=== PATIENT | male | born 1970 | race African-American/Black ===

== ENCOUNTER 2018-09-01 16:37 | Inpatient (IN) | payer OTHER ==
--- NOTE | 2018-09-01 22:54 | HP ---
Screened but not Admitted - Documentation of Visit Screened but not Admitted: No Left Prior to Completion of Assessment: Yes Additional Information/Explanation: CLIENT ABORTED ADMISSION. UNABLE TO LOCATE PATIENT ON MULTIPLE ATTEMPTS
--- NOTE | 2018-09-02 01:40 | HP ---
CIWA Score Nausea/Vomitin-Mild Nausea/No Vomiting Muscle Tremors: None Anxiety: 0-No Anxiety, at Ease Agitation: 3 Paroxysmal Sweats: 3 Orientation: 0-Oriented Tacttile Disturbances: 0-None Auditory Disturbances: 0-None Visual Disturbances: 1-Very Mild Sensitivity Headache: 3-Moderate CIWA-Ar Total Score: 11 - Admission Criteria [facility]ASAS Guidelines: Admission for Medically Managed Detox: Requires at least one of the followin. CIWA greater than 12 2. Seizures within the past 24 hours 3. Delirium tremens within the past 24 hours 4. Hallucinations within the past 24 hours 5. Acute intervention needed for co occurring medical disorder 6. Acute intervention needed for co occurring psychiatric disorder 7. Severe withdrawal that cannot be handled at a lower level of care (continued vomiting, continued diarrhea, abnormal vital signs) requiring intravenous medication and/or fluids 8. Patient presents the following: Acute intervention needed for co-occurring med or psych disorder Admission Criteria Met: Admission criteria met Admission ROS [facility] - [facility] Chief Complaint: WITHDRAWAL SX'S Allergies/Adverse Reactions: Allergies Allergy/AdvReac Type Severity Reaction Status Date / Time No Known Allergies Allergy Verified 09/02/18 03:14 History of Present Illness: 48 Y.O. MALE WITH POLYSUBSTANCE ABUSE HERE FOR ALCOHOL DETOX. CLIENT IS SELF REFERRED. PRESENTS WITH C/O WITHDRAWAL SX'S. CIWA 12. HE IS ALSO ON MMTP 80 MG AT START. REPORTS LDM 09/01/2018. REPORTS LONGEST CLEAN TIME 5 YEARS. DENIES HX/ O SEIZURES, SI/HI/AVH,. HOMELESS, HRA, DENIES LEGALS Exam Limitations: No Limitations - Ebola screening Have you traveled outside of the country in the last 21 days: No (N) Have you had contact with anyone from an Ebola affected area: No Do you have a fever: No - Review of Systems Constitutional: Chills, Loss of Appetite, Night Sweats, Changes in sleep EENT: reports: No Symptoms Reported Respiratory: reports: No Symptoms reported Cardiac: reports: No Symptoms Reported GI: reports: Diarrhea, Nausea, Poor Fluid Intake, Abdominal cramping : reports: No Symptoms Reported Musculoskeletal: reports: No Symptoms Reported Integumentary: reports: Other (ABRASION/SKIN BREAKS TO CORNER OF LIPS) Neuro: reports: Headache Endocrine: reports: No Symptoms Reported Hematology: reports: No Symptoms Reported Psychiatric: reports: Orientated x3, Agitated (IRRITABLE), Depressed (FEELS DEPRESSED. DENIES SI/HI) Other Systems: Reviewed and Negative Patient History - Patient Medical History Hx Anemia: No Hx Asthma: No Hx Chronic Obstructive Pulmonary Disease (COPD): No Hx Cancer: No Hx Cardiac Disorders: No Hx Congestive Heart Failure: No Hx Hypertension: Yes Hx Hypercholesterolemia: No Hx Pacemaker: No HX Cerebrovascular Accident: No Hx Seizures: No Hx Dementia: No Hx Diabetes: No Hx Gastrointestinal Disorders: No Hx Liver Disease: No Hx Genitourinary Disorders: No Hx Sexually Transmitted Disorders: No Hx Renal Disease (ESRD): No Hx Thyroid Disease: No Hx Human Immunodeficiency Virus (HIV): No Hx Hepatitis C: No Hx Depression: Yes Hx Suicide Attempt: No Hx Bipolar Disorder: No Hx Schizophrenia: No - Patient Surgical History Past Surgical History: Yes Hx Neurologic Surgery: No Hx Cataract Extraction: No Hx Cardiac Surgery: No Hx Lung Surgery: No Hx Breast Surgery: No Hx Breast Biopsy: No Hx Abdominal Surgery: No Hx Appendectomy: No Hx Cholecystectomy: No Hx Genitourinary Surgery: No Hx Orthopedic Surgery: Yes (1985 RIGHT ORBITAL FX) Anesthesia Reaction: No - PPD History Previous Implant?: Yes Documented Results: Negative w/proof Implanted On Prior [facility] Admission?: No Date: 04/10/16 PPD to be Administered?: Yes - Smoking Cessation Smoking history: Current every day smoker Have you smoked in the past 12 months: Yes Aproximately how many cigarettes per day: 10 Cigars Per Day: 0 Hx Chewing Tobacco Use: No Initiated information on smoking cessation: Yes 'Breaking Loose' booklet given: 09/02/18 - Substance & Tx. History Hx Alcohol Use: Yes Hx Substance Use: Yes Substance Use Type: Alcohol, Cocaine, Prescribed (MMTP 50 MG DAILY) Hx Substance Use Treatment: Yes ([facility]) - Substances abused Alcohol Other (specify): VODKA Substance route: Oral Frequency: Daily Amount used: 2 PINTS Age of first use: 15 Date of last use: 08/31/18 Marijuana/Hashish Substance route: Smoking Frequency: Daily Amount used: $15 Age of first use: 11 Date of last use: 08/30/18 Cocaine Substance route: Smoking Frequency: Daily Amount used: $100 Age of first use: 15 Date of last use: 09/01/18 Family Disease History - Family Disease History Family Disease History: Other: Father (NEVER MET) Admission Physical Exam [facility] - Physical General Appearance: Yes: Appropriately Dressed, Irritable HEENTM: Yes: EOMI, Normal ENT Inspection, Normocephalic, Normal Voice, BILLY, Pharynx Normal Respiratory: Yes: Chest Non-Tender, Lungs Clear, Normal Breath Sounds, No Respiratory Distress, No Accessory Muscle Use Neck: Yes: No masses,lesions,Nodules, Supple, Trachea in good position Breast: Yes: Breast Exam Deferred Cardiology: Yes: Regular Rhythm, S1, S2, Tachycardia Abdominal: Yes: Normal Bowel Sounds, Soft, Increased Bowel Sounds Genitourinary: Yes: Within Normal Limits Back: Yes: Normal Inspection Musculoskeletal: Yes: full range of Motion, Gait Steady Extremities: Yes: Normal Capillary Refill, Normal Range of Motion, Non-Tender Neurological: Yes: Fully Oriented, Alert, Motor Strength 5/5, Depressed Affect Integumentary: Yes: Dry, Warm Lymphatic: Yes: Within Normal Limits - Diagnostic (1) Alcohol dependence with uncomplicated withdrawal Status: Acute (2) Cannabis dependence, uncomplicated Status: Chronic (3) Cocaine dependence, uncomplicated Status: Chronic (4) History of hypertension Status: Chronic Comment: DIETARY CONTROL (5) Nicotine dependence Status: Chronic Qualifiers: Nicotine product type: cigarettes Substance use status: uncomplicated Qualified Code(s): F17.210 - Nicotine dependence, cigarettes, uncomplicated (6) Substance induced mood disorder Status: Chronic Cleared for Admission [facility] - Detox or Rehab [facility] Level of Care: Medically Managed Detox Regimen/Protocol: Librium Claeared for Rehab Admission: No Breathalyzer - Breathalyzer Breathalyzer: 0.007 Urine Drug Screen - Test Device Lot number: [id number] Expiration date: 04/17/20 - Control Is test valid?: Yes - Results Drug screen NEGATIVE: No Urine drug screen results: THC-Marijuana, AMIRAH-Cocaine, MTD-Methadone Inpatient Rehab Admission - Rehab Decision to Admit Inpatient rehab admission?: No
[2018-09-02] MEDS ORDERED: BISMUTH SUBSALICYLATE 524 MG/30 ML UD PO PRN (01:49)
[2018-09-02] MEDS ORDERED: hydrOXYzine PAMOATE 25 MG CAPSULE (FP) PO PRN (01:49)
[2018-09-02] MEDS ORDERED: MELATONIN 5 MG TABLETS PO PRN (01:49)
[2018-09-02] MEDS ORDERED: MAGNESIUM HYDROX 2400MG/30ML ORAL SUSPENSION 30 ML CUP PO PRN (01:49)
[2018-09-02] MEDS ORDERED: IBUPROFEN 400 MG TABLET (FP) PO PRN (01:49)
[2018-09-02] MEDS ORDERED: DICYCLOMINE HCL 10 MG CAPSULE PO PRN (01:49)
[2018-09-02] MEDS ORDERED: chlordiazePOXIDE HCL 10 MG CAPSULE PO PRN (01:49)
[2018-09-02] MEDS ORDERED: ACETAMINOPHEN 325 MG TABLET (FP) PO PRN ×2 (01:49)
[2018-09-02] MEDS ORDERED: MAGNESIUM CITRATE 300 ML BOTTLE PO PRN (01:49)
[2018-09-02] MEDS ORDERED: MENTHOL/PHENOL 1 EACH UD MM PRN (01:49)
[2018-09-02] MEDS ORDERED: P-EPHED 60MG/TRIPROLIDI 2.5MG TABLET PO PRN (01:49)
[2018-09-02] MEDS ORDERED: NICOTINE POLACRILEX 2 MG GUM BUC PRN (01:49)
[2018-09-02] MEDS ORDERED: guaiFENesin 200 MG/10 ML 10 ML UNIT-DOSE CUPS PO PRN (01:49)
[2018-09-02] MEDS ORDERED: MAG HYDROX/AL HYDROX/SIMETH 30 ML UNIT-DOSE CUP PO PRN (01:49)
[2018-09-02] MEDS ORDERED: METHOCARBAMOL 500 MG TABLET PO PRN (01:49)
[2018-09-02] MEDS ORDERED: ONDANSETRON *ODT* 4 MG TABLET SL PRN (01:49)
[2018-09-02] MEDS: chlordiazePOXIDE HCL 25 MG CAPSULE PO SCH ×3 (05:12→22:19)
[2018-09-02] MEDS: PRENATAL VITAMINS W/ FOLIC ACID TABLET (FP) PO SCH (10:23)
[2018-09-02] MEDS: NICOTINE 21 MG/24 HOURS TOPICAL PATCH TD SCH (10:23)
[2018-09-02] MEDS: amLODIPine BESYLATE 5 MG TABLET (FP) PO SCH (10:23)
[2018-09-02] MEDS ORDERED: METHADONE HCL 40 MG DISPERSABLE TABLET PO ONE (10:47)
--- NOTE | 2018-09-02 11:19 | PN ---
S CIWA - CIWA Score Nausea/Vomitin-Mild Nausea/No Vomiting Muscle Tremors: 3 Anxiety: 3 Agitation: 3 Paroxysmal Sweats: 1-Minimal Palms Moist Orientation: 2-Disoriented Date<2 days Tacttile Disturbances: 0-None Auditory Disturbances: 0-None Visual Disturbances: 0-None Headache: 0-None Present CIWA-Ar Total Score: 13 [facility] Progress Note (SOAP) Subjective: methadone 80 mg verified anxious resting on bed Objective: 09/02/18 11:18 Vital Signs Temperature 97.0 F L 09/02/18 09:05 Pulse Rate 56 L 09/02/18 09:05 Respiratory Rate 18 09/02/18 09:05 Blood Pressure 131/78 09/02/18 09:05 O2 Sat by Pulse Oximetry (%) 09/02/18 11:18 lab pending Assessment: 09/02/18 11:18 withdrawal sx Plan: continue detox
[2018-09-02 12:53] LABS: ALBUMIN 3.2 g/dl (3.4-5.0); ALK PHOS 84 U/L (45-117); ANION GAP 5 MMOL/L (8-16); BILIRUBIN,TOTAL 0.4 mg/dL (0.2-1); BLOOD UREA NITROGEN 15 mg/dL (7-18); CALCIUM 8.9 mg/dL (8.5-10.1); CHLORIDE 103 mmol/L (98-107); CO2 31 mmol/L (21-32); CREATININE 0.7 mg/dL (0.55-1.3); GLUCOSE,RANDOM 78 mg/dL (74-106); POTASSIUM 3.7 mmol/L (3.5-5.1); SGOT/AST 40 U/L (15-37); SGPT/ALT 43 U/L (13-61); SODIUM 139 mmol/L (136-145); TOT PROT 6.5 g/dl (6.4-8.2)
[2018-09-02 13:28] LABS: HEMATOCRIT 38.4 % (35.4-49); MCHC 33.8 g/dl (32.0-35.9); MEAN CELL VOLUME 94.7 fl (80-96); MEAN PLT VOLUME 7.8 fl (7.5-11.1); PLATELET COUNT 273 K/MM3 (134-434); RBC 4.05 M/mm3 (4.00-5.60); RDW 14.7 % (11.9-15.9); WHITE BLOOD COUNT 7.1 K/mm3 (4.0-10.0)
--- NOTE | 2018-09-02 13:36 | CONSULT ---
[facility] Psychiatric Consult - Data Date of interview: 09/02/18 Admission source: [facility] Identifying data: Readmission to [facility] for this 48 y/o AA male self- referred for detoxification (cocaine, heroin, cannabis). Examined at [address] [place] [address]. Patient is , a father of one, homeless, unemployed and supported on food stamps. Substance Abuse History: Confirmed by patient in this session. Details in current [facility] report : Smoking history: Current every day smoker. Have you smoked in the past 12 months: Yes. Aproximately how many cigarettes per day: 10. Cigars Per Day: 0. Hx Chewing Tobacco Use: No. Initiated information on smoking cessation: Yes. 'Breaking Loose' booklet given: 09/02/18. - Substance & Tx. History. Hx Alcohol Use: Yes. Hx Substance Use: Yes. Substance Use Type : Alcohol, Cocaine, Prescribed (MMTP 50 MG DAILY). Hx Substance Use Treatment: Yes ([facility]). - Substances abused. Alcohol. Other (specify): VODKA. Substance route: Oral. Frequency: Daily. Amount used: 2 PINTS. Age of first use: 15. Date of last use: 08/31/18. Marijuana/Hashish. Substance route: Smoking. Frequency: Daily. Amount used: $15. Age of first use: 11. Date of last use: 08/30/18. Cocaine. Substance route: Smoking. Frequency: Daily. Amount used: $100. Age of first use: 15. Date of last use: 09/01/18 Medical History: Hypertension. Psychiatric History: No reported history of psychiatric hospitalizations. Patient states that he was diagnosed, in the past, with MDD and prescribed escitalopram. Dropped out of [facility] care in 2016 (got off lexapro). Mr Pike is currently on methadone maintenance (80 mg/day) at the [facility]. Denies history of suicide attempts. Physical/Sexual Abuse/Trauma History: Patient denies. Additional Comment: Urine drug screen results: THC-Marijuana, AMIRAH-Cocaine, MTD- Methadone. Noted. Mental Status Exam - Mental Status Exam Alert and Oriented to: Time, Place, Person Cognitive Function: Good Patient Appearance: Well Groomed Mood: Hopeful, Euthymic Affect: Appropriate, Normal Range Patient Behavior: Fatigued, Appropriate, Cooperative Speech Pattern: Clear, Appropriate Voice Loudness: Normal Thought Process: Intact, Goal Oriented Thought Disorder: Not Present Hallucinations: Denies Suicidal Ideation: Denies Homicidal Ideation: Denies Insight/Judgement: Poor Sleep: Well Appetite: Good Muscle strength/Tone: Normal Gait/Station: Normal Psychiatric Findings - Problem List ([place] 1, 2,3) (1) Alcohol dependence with uncomplicated withdrawal Current Visit: Yes Status: Acute (2) Opioid dependence on agonist therapy Current Visit: Yes Status: Chronic (3) Cannabis dependence, uncomplicated Current Visit: Yes Status: Chronic (4) Cocaine dependence, uncomplicated Current Visit: Yes Status: Chronic (5) Nicotine dependence Current Visit: Yes Status: Chronic Qualifiers: Nicotine product type: cigarettes Substance use status: uncomplicated Qualified Code(s): F17.210 - Nicotine dependence, cigarettes, uncomplicated - Initial Treatment Plan Initial Treatment Plan: Psychoeducation. Sleep hygiene. Support. Detoxification. Rehabilitation recommended. Observation.
[2018-09-02] MEDS ORDERED: THIAMINE HCL 100 MG TABLET (FP) PO SCH (22:00)
[2018-09-03] MEDS: chlordiazePOXIDE 5 MG CAPSULE PO SCH ×2 (05:12→13:52)
[2018-09-03] MEDS ORDERED: METHADONE HCL 40 MG DISPERSABLE TABLET PO SCH (06:00)
[2018-09-03] MEDS ORDERED: BACITRACIN 0.9 GM PACKET TP SCH (10:00)
[2018-09-03] MEDS: amLODIPine BESYLATE 5 MG TABLET (FP) PO SCH (10:15)
[2018-09-03] MEDS: PRENATAL VITAMINS W/ FOLIC ACID TABLET (FP) PO SCH (10:15)
[2018-09-03] MEDS: NICOTINE 21 MG/24 HOURS TOPICAL PATCH TD SCH (10:16)
[2018-09-03 10:50] LABS: URINE APPEARANCE CLEAR; URINE BILIRUBIN NEGATIVE (NEGATIVE); URINE COLOR YELLOW; URINE GLUCOSE (UA) NEGATIVE (NEGATIVE); URINE KETONE NEGATIVE (NEGATIVE); URINE LEUK ESTERASE NEGATIVE (NEGATIVE); URINE NITRITE NEGATIVE (NEGATIVE); URINE PROTEIN NEGATIVE (NEGATIVE); URINE UROBILINOGEN 0.2 mg/dL (0.2-1.0)
[2018-09-03 13:42] VITALS: BP 144/81; PULSE 52; TEMP 96.8
--- NOTE | 2018-09-03 14:16 | PN ---
S CIWA - CIWA Score Nausea/Vomitin-Mild Nausea/No Vomiting Muscle Tremors: 3 Anxiety: 2 Agitation: 2 Paroxysmal Sweats: 1-Minimal Palms Moist Orientation: 2-Disoriented Date<2 days Tacttile Disturbances: 0-None Auditory Disturbances: 0-None Visual Disturbances: 0-None Headache: 1-Very Mild CIWA-Ar Total Score: 12 [facility] Progress Note (SOAP) Subjective: worry about left groin hernia x "years" denies discomfort encourage follow up with surgeon patient was follow up with [facility] by history Objective: 09/03/18 14:15 Vital Signs Temperature 96.8 F L 09/03/18 13:41 Pulse Rate 52 L 09/03/18 13:41 Respiratory Rate 18 09/03/18 13:41 Blood Pressure 144/81 09/03/18 13:41 O2 Sat by Pulse Oximetry (%) Laboratory Last Values WBC 7.1 K/mm3 (4.0-10.0) 09/02/18 07:00 RBC 4.05 M/mm3 (4.00-5.60) 09/02/18 07:00 Hgb 13.0 GM/dL (11.7-16.9) 09/02/18 07:00 Hct 38.4 % (35.4-49) 09/02/18 07:00 MCV 94.7 fl (80-96) 09/02/18 07:00 MCH 32.0 pg (25.7-33.7) 09/02/18 07:00 MCHC 33.8 g/dl (32.0-35.9) 09/02/18 07:00 RDW 14.7 % (11.9-15.9) 09/02/18 07:00 Plt Count 273 K/MM3 (134-434) D 09/02/18 07:00 MPV 7.8 fl (7.5-11.1) 09/02/18 07:00 Sodium 139 mmol/L (136-145) 09/02/18 07:00 Potassium 3.7 mmol/L (3.5-5.1) 09/02/18 07:00 Chloride 103 mmol/L (98-107) 09/02/18 07:00 Carbon Dioxide 31 mmol/L (21-32) 09/02/18 07:00 Anion Gap 5 MMOL/L (8-16) L 09/02/18 07:00 BUN 15 mg/dL (7-18) 09/02/18 07:00 Creatinine 0.7 mg/dL (0.55-1.3) 09/02/18 07:00 Creat Clearance w eGFR 119.86 (>60) 09/02/18 07:00 Random Glucose 78 mg/dL (74-106) 09/02/18 07:00 Calcium 8.9 mg/dL (8.5-10.1) 09/02/18 07:00 Total Bilirubin 0.4 mg/dL (0.2-1) 09/02/18 07:00 AST 40 U/L (15-37) H 09/02/18 07:00 ALT 43 U/L (13-61) 09/02/18 07:00 Alkaline Phosphatase 84 U/L (45-117) 09/02/18 07:00 Total Protein 6.5 g/dl (6.4-8.2) 09/02/18 07:00 Albumin 3.2 g/dl (3.4-5.0) L 09/02/18 07:00 Urine Color Yellow 09/03/18 07:00 Urine Appearance Clear 09/03/18 07:00 Urine pH 7.0 (5.0-8.0) 09/03/18 07:00 Ur Specific [place] 1.017 (1.010-1.035) 09/03/18 07:00 Urine Protein Negative (NEGATIVE) 09/03/18 07:00 Urine Glucose (UA) Negative (NEGATIVE) 09/03/18 07:00 Urine Ketones Negative (NEGATIVE) 09/03/18 07:00 Urine Blood Negative (NEGATIVE) 09/03/18 07:00 Urine Nitrite Negative (NEGATIVE) 09/03/18 07:00 Urine Bilirubin Negative (NEGATIVE) 09/03/18 07:00 Urine Urobilinogen 0.2 mg/dL (0.2-1.0) 09/03/18 07:00 Ur Leukocyte Esterase Negative (NEGATIVE) 09/03/18 07:00 RPR Titer Nonreactive (NONREACTIVE) 09/02/18 07:00 HIV 1&2 Antibody Screen Negative 09/02/18 07:00 HIV P24 Antigen Negative 09/02/18 07:00 lab noted Assessment: 09/03/18 14:15 withdrawal sx Plan: continue detox
--- NOTE | 2018-09-03 17:06 | DS ---
[facility] Detox Discharge Summary Admission Date: 09/02/18 Discharge Date: 09/03/18 - History Present History: Alcohol Dependence, Cannabis Dependence, Cocaine Dependence, MMTP Additional Comments: Patient left AMA. Patient to follow up with attached referrals. If worsening symptoms are present. Patient to seek medical attention. - Physical Exam Results Vital Signs: Vital Signs Temperature 96.8 F L 09/03/18 13:41 Pulse Rate 52 L 09/03/18 13:41 Respiratory Rate 18 09/03/18 13:41 Blood Pressure 144/81 09/03/18 13:41 O2 Sat by Pulse Oximetry (%) - Treatment Hospital Course: Discharged Condition Good - Medication Discharge Medications: Ambulatory Orders Amlodipine Besylate [Norvasc -] 5 mg PO DAILY #30 tablet 05/02/16 Doxepin HCl [Sinequan -] 75 mg PO HS #30 capsule 05/02/16 Lisinopril [Prinivil] 10 mg PO DAILY #30 tablet 05/02/16 hydrOXYzine PAMOATE [Vistaril -] 50 mg PO Q4H PRN #60 capsule 05/02/16 - Diagnosis (1) Alcohol dependence with uncomplicated withdrawal Current Visit: Yes Status: Acute (2) Cannabis dependence, uncomplicated Current Visit: Yes Status: Chronic (3) Cocaine dependence, uncomplicated Current Visit: Yes Status: Chronic (4) History of hypertension Current Visit: Yes Status: Chronic (5) Nicotine dependence Current Visit: Yes Status: Chronic Qualifiers: Nicotine product type: cigarettes Substance use status: uncomplicated Qualified Code(s): F17.210 - Nicotine dependence, cigarettes, uncomplicated (6) Opioid dependence on agonist therapy Current Visit: Yes Status: Chronic - AMA Did Patient Leave Against Medical Advice: Yes
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
[2018-09-04] MEDS ORDERED: chlordiazePOXIDE HCL 10 MG CAPSULE PO PRN (05:00)
[2018-09-04] MEDS ORDERED: chlordiazePOXIDE HCL 10 MG CAPSULE PO SCH (05:00)
== END 2018-09-03 17:05 | disposition left against medical advice (07) | DRG 770 ==
LOC: YASAS 16:37 → Y3N 09-02 01:45
PROVIDERS: ADMIT Surgery; ATTEND Surgery
PROC: HZ2ZZZZ Detoxification Services for Substance Abuse Treatment (ICD-10-PCS; principal; 2018-09-02)
DX: F10.230 Alcohol dependence with withdrawal, uncomplicated (principal); F11.20 Opioid dependence, uncomplicated; F14.20 Cocaine dependence, uncomplicated; F12.20 Cannabis dependence, uncomplicated; F17.210 Nicotine dependence, cigarettes, uncomplicated; I10 Essential (primary) hypertension
CPT/HCPCS: 36415; 80053; 81003; 85027; 86593; 87389